=== PATIENT | female | born 1950 | race Caucasian/White ===

== ENCOUNTER → 2016-06-11 | Outpatient (CLI) | payer MEDICARE ==
[~2016-06-11] MED LIST: ALDACTONE 25MG25 M1 PO; ANTIVERT 25MG25 MG PO; ASPIRIN 32325 MG/TAB PO; ATIVAN 1MG T1 MG/TAB PO; ATIVAN1 MG PO; BENADRYL25 M1 PO; BENADRYL25 M2; COREG12.5 MG PO; COZAAR 25MG25 MG/TAB PO; EFFEXOR XR150 MG PO; EFFEXOR-XR150 MG PO; K-DUR20 MEQ PO; LASIX 20MG TABL20 MG PO; LEXAPRO10 MG PO; LIPITOR80 MG PO; MICARDIS80 MG PO; NORCO 325 MG-51 TAB PO; NORVASC5 MG PO; PERCOCET 325 MG1 TA2 PO; TOPROL XL25 MG PO; ULTRAM 50MG TAB50 MG PO
== END ==
LOC: MC.RAD 11:20
DX: Z12.31 Encounter for screening mammogram for malignant neoplasm of breast (principal); D24.2 Benign neoplasm of left breast; D24.1 Benign neoplasm of right breast; Z80.3 Family history of malignant neoplasm of breast

== ENCOUNTER → 2018-05-11 | Outpatient (CLI) | payer MEDICARE | LOC: MC.RAD 13:16 | DX: Z12.31 Encounter for screening mammogram for malignant neoplasm of breast (principal); Z95.0 Presence of cardiac pacemaker; Z98.82 Breast implant status; Z98.890 Other specified postprocedural states ==

== ENCOUNTER → 2019-05-31 | Outpatient (CLI) | payer MEDICARE | LOC: MC.RAD 12:38 | DX: Z12.31 Encounter for screening mammogram for malignant neoplasm of breast (principal) ==

== ENCOUNTER → 2020-07-07 | Outpatient (CLI) | payer BC, MEDICARE | LOC: MC.RAD 13:01 | DX: Z12.31 Encounter for screening mammogram for malignant neoplasm of breast (principal) ==

== ENCOUNTER → 2021-08-27 | Outpatient (CLI) | payer OTHER, MEDICARE | LOC: MC.RAD 11:15 | DX: Z12.31 Encounter for screening mammogram for malignant neoplasm of breast (principal); Z80.3 Family history of malignant neoplasm of breast ==